=== PATIENT | male | born 1965 | race Hispanic/Latino ===

== ENCOUNTER 2018-01-15 16:02 | Inpatient (IN) | payer OTHER ==
[~2018-01-15] VITALS: Ht 167.6 cm; Wt 142.4 kg
[~2018-01-15 16:02] MED LIST: ESOM20CA60 PO; HYDR-3830 PO; LISI-613 PO; TAMS-1 PO
[2018-01-15] MEDS ORDERED: SODIUM CHLORIDE 0.9% 1000ML 2,000 ML IV ONE (17:05)
[2018-01-15 17:09] LABS: BASOPHILS % (AUTO) 0.2 % (0.0-5.0); EOSINOPHILS % (AUTO) 0.2 % (0.0-8.0); HEMATOCRIT 52.1 % (42-54); LYMPHOCYTES % (AUTO) 12.1 % (21.0-51.0); MEAN CORPUSCULAR HEMOGLOBIN 31.5 pg (27.0-33.0); MEAN CORPUSCULAR HGB CONC 34.2 g/dL (32.0-36.0); MONOCYTES % (AUTO) 6.3 % (3.0-13.0); NEUTROPHILS % (AUTO) 81.2 % (40.0-77.0); PLATELET COUNT (AUTO) 240 K/uL (130-400); RED BLOOD CELL COUNT(AUTO) 5.66 MIL/uL (4.50-6.20); RED CELL DISTRIBUTION WIDTH 15.4 % (11.0-15.5); WHITE BLOOD COUNT (AUTO) 11.5 K/uL (4.8-10.8)
[2018-01-15 17:19] LABS: INR 1.02 (0.85-1.15); PROTHROMBIN TIME 10.7 SEC (9.6-11.6)
[2018-01-15] MEDS ORDERED: KETOROLAC TROMETHAMINE 30MG/ML ONE (17:29)
[2018-01-15 17:37] LABS: CARBON DIOXIDE 25 mmol/L (21-32); CHLORIDE 100 mmol/L (101-111); CREATININE 0.9 mg/dL (0.5-1.5); GLOMERULAR FILTR. RATE CALC 95 mL/min (>60); GLUCOSE,RANDOM 107 mg/dL (70-105); POTASSIUM 3.5 mmol/L (3.5-5.1); SODIUM SERUM 137 mmol/L (136-145); UREA NITROGEN, BLOOD 14 mg/dL (7-18)
[2018-01-15 17:43] LABS: ALANINE AMINOTRANSFERASE 19 U/L (12-78); ALBUMIN 3.5 g/dL (3.5-5.0); ASPARTATE AMINOTRANSFERASE 21 U/L (10-37); BILIRUBIN,TOTAL 0.7 mg/dL (0.2-1.0); CREATINE KINASE MB 0.7 ng/mL (0.5-3.6); CREATINE KINASE, TOTAL 31 U/L (21-232); MYOGLOBIN 23 ng/mL (10-92); TROPONIN I < 0.04 ng/mL (0.00-0.06)
[2018-01-15] MEDS ORDERED: IOPAMIDOL-370 75 ML VIAL IV ONE (19:06)
[2018-01-15 20:10] LABS: APPEARANCE,URINE Clear (CLEAR); BILIRUBIN,URINE Negative (NEGATIVE); COLOR,URINE Yellow (YELLOW); GLUCOSE, URINE (UA) Negative (NEGATIVE); KETONES,URINE 15 mg/dL (NEGATIVE); LEUKOCYTE ESTERASE ,URINE Trace (NEGATIVE); NITRATE,URINE Negative (NEGATIVE); OCCULT BLOOD,URINE Negative (NEGATIVE); PROTEIN,URINE Negative (NEGATIVE)
[2018-01-15 20:22] LABS: BACTERIA,URINE None Seen /HPF (None Seen); RBC,URINE None Seen /HPF (0-1); SQUAMOUS EPITHELIAL CELL,UR 0-2 /HPF (0-2); WBC,URINE None Seen /HPF (0-1)
[2018-01-15] MEDS ORDERED: ONDANSETRON HCL MDV 20ML 2 MG/ML VIAL ONE (22:44)
[2018-01-15] MEDS ORDERED: MORPHINE SULFATE 4 MG/1ML SYG ONE (22:45)
[2018-01-16] VITALS (7 sets, daily range): BP systolic 108–179; BP diastolic 71–100
[2018-01-16] MEDS ORDERED: KETOROLAC TROMETHAMINE 30MG/ML ONE (00:42)
[2018-01-16] MEDS ORDERED: LACTATED RINGERS 1000ML 1,000 ML IV ONE (00:43)
[2018-01-16] MEDS ORDERED: DEXTROSE 50%-WATER 50 ML DISP.SYRIN IV PRN (01:00)
[2018-01-16] MEDS: LACTATED RINGERS 1000ML 1,000 ML IV SCH ×3 (01:00→14:59)
[2018-01-16] MEDS ORDERED: GLUCAGON 1MG KIT 1 MG ML IM PRN (01:00)
[2018-01-16] MEDS ORDERED: LORAZEPAM 2 MG/ML 1 ML VIAL IVP PRN ×2 (01:15→23:45)
[2018-01-16] MEDS ORDERED: MORPHINE SULFATE 2 MG/ML 1ML SYG IVP PRN (01:15)
[2018-01-16] MEDS ORDERED: HYDRALAZINE HCL 20 MG/ML VIAL IV PRN (01:15)
[2018-01-16 04:33] LABS: MEAN CORPUSCULAR HEMOGLOBIN 31.5 pg (27.0-33.0); MEAN CORPUSCULAR HGB CONC 34.7 g/dL (32.0-36.0); MEAN CORPUSCULAR VOLUME 90.8 fL (79-99); PLATELET COUNT (AUTO) 208 K/uL (130-400); RED BLOOD CELL COUNT(AUTO) 5.29 MIL/uL (4.50-6.20); RED CELL DISTRIBUTION WIDTH 15.4 % (11.0-15.5); WHITE BLOOD COUNT (AUTO) 9.3 K/uL (4.8-10.8)
[2018-01-16 04:37] LABS: CREATININE 0.8 mg/dL (0.5-1.5); POTASSIUM 3.6 mmol/L (3.5-5.1)
[2018-01-16 04:53] LABS: HEMOGLOBIN A1C 5.5 % (4.0-6.0)
[2018-01-16] MEDS: HEPARIN SODIUM 5000UNIT/ML 1ML VIAL SQ SCH ×3 (06:00→22:09)
[2018-01-16] MEDS: INSULIN R NPO SSI SQ SCH ×3 (06:00→17:34)
[2018-01-16] MEDS: KETOROLAC TROMETHAMINE 30MG/ML IV PRN ×3 (08:18→21:01)
[2018-01-16] MEDS: ONDANSETRON HCL MDV 20ML 2 MG/ML VIAL IVP PRN ×3 (08:19→21:07)
[2018-01-16] MEDS: PANTOPRAZOLE 40 MG/VIAL IVP SCH ×2 (08:34→20:51)
[2018-01-16] MEDS: METRONIDAZOLE 500MG/100ML BAG 100 ML IV SCH ×2 (14:58→22:05)
[2018-01-16] MEDS ORDERED: LORAZEPAM 2 MG/ML 1 ML VIAL ONE (23:41)
[2018-01-17] VITALS: BP 114/67
[2018-01-17 04:00] VITALS: BP 136/97
[2018-01-17] MEDS: LACTATED RINGERS 1000ML 1,000 ML IV SCH ×2 (04:58→15:35)
[2018-01-17] MEDS: METRONIDAZOLE 500MG/100ML BAG 100 ML IV SCH ×3 (05:03→21:27)
[2018-01-17] MEDS: HEPARIN SODIUM 5000UNIT/ML 1ML VIAL SQ SCH ×3 (05:03→21:31)
[2018-01-17] MEDS: INSULIN R NPO SSI SQ SCH ×4 (06:00→16:52)
[2018-01-17 06:21] LABS: BASOPHILS % (AUTO) 0.3 % (0.0-5.0); EOSINOPHILS % (AUTO) 0.7 % (0.0-8.0); HEMATOCRIT 44.7 % (42-54); LYMPHOCYTES % (AUTO) 22.3 % (21.0-51.0); MEAN CORPUSCULAR HEMOGLOBIN 31.2 pg (27.0-33.0); MEAN CORPUSCULAR VOLUME 91.8 fL (79-99); MONOCYTES % (AUTO) 9.2 % (3.0-13.0); NEUTROPHILS % (AUTO) 67.5 % (40.0-77.0); PLATELET COUNT (AUTO) 176 K/uL (130-400); RED BLOOD CELL COUNT(AUTO) 4.87 MIL/uL (4.50-6.20); WHITE BLOOD COUNT (AUTO) 6.2 K/uL (4.8-10.8)
[2018-01-17 06:39] LABS: CREATININE 0.8 mg/dL (0.5-1.5); POTASSIUM 3.7 mmol/L (3.5-5.1)
[2018-01-17] MEDS: ONDANSETRON HCL MDV 20ML 2 MG/ML VIAL IVP PRN ×3 (06:54→23:20)
[2018-01-17] MEDS: KETOROLAC TROMETHAMINE 30MG/ML IV PRN ×3 (06:59→23:19)
[2018-01-17 07:00] VITALS: BP 117/72
[2018-01-17] MEDS: PANTOPRAZOLE 40 MG/VIAL IVP SCH ×2 (09:04→20:03)
[2018-01-17 11:00] VITALS: BP 140/68
[2018-01-17 16:00] VITALS: BP 147/94
[2018-01-17] MEDS ORDERED: PEG 3350/NA SULF,BICARB,CL/KCL 4000 ML SOLN PO ONE (16:00)
[2018-01-17] MEDS ORDERED: MORPHINE SULFATE 4 MG/1ML SYG ONE (19:48)
[2018-01-17 19:50] VITALS: BP 163/108
[2018-01-18] VITALS: BP 139/84
[2018-01-18] MEDS ORDERED: MORPHINE SULFATE 4 MG/1ML SYG ONE ×3 (00:23→17:36)
[2018-01-18] MEDS: LACTATED RINGERS 1000ML 1,000 ML IV SCH ×5 (02:32→22:49)
[2018-01-18 03:45] VITALS: BP 147/94
[2018-01-18 05:56] LABS: BASOPHILS % (AUTO) 0.5 % (0.0-5.0); EOSINOPHILS % (AUTO) 0.6 % (0.0-8.0); HEMATOCRIT 44.9 % (42-54); MEAN CORPUSCULAR HEMOGLOBIN 31.3 pg (27.0-33.0); MEAN CORPUSCULAR HGB CONC 34.2 g/dL (32.0-36.0); MEAN CORPUSCULAR VOLUME 91.6 fL (79-99); MONOCYTES % (AUTO) 10.1 % (3.0-13.0); NEUTROPHILS % (AUTO) 71.8 % (40.0-77.0); PLATELET COUNT (AUTO) 195 K/uL (130-400); RED CELL DISTRIBUTION WIDTH 15.1 % (11.0-15.5); WHITE BLOOD COUNT (AUTO) 6.7 K/uL (4.8-10.8)
[2018-01-18 05:58] LABS: CREATININE 0.8 mg/dL (0.5-1.5); POTASSIUM 3.7 mmol/L (3.5-5.1)
[2018-01-18] MEDS: HEPARIN SODIUM 5000UNIT/ML 1ML VIAL SQ SCH ×3 (06:00→21:39)
[2018-01-18] MEDS: INSULIN R NPO SSI SQ SCH ×5 (06:00→23:49)
[2018-01-18] MEDS: KETOROLAC TROMETHAMINE 30MG/ML IV PRN ×3 (06:30→21:39)
[2018-01-18] MEDS: METRONIDAZOLE 500MG/100ML BAG 100 ML IV SCH ×3 (06:30→21:38)
[2018-01-18] MEDS: ONDANSETRON HCL MDV 20ML 2 MG/ML VIAL IVP PRN ×3 (06:30→21:38)
[2018-01-18 08:32] VITALS: BP 121/72
[2018-01-18] MEDS: TAMSULOSIN HCL 0.4 MG CAP.ER.24H PO SCH (09:00)
[2018-01-18] MEDS: PANTOPRAZOLE 40 MG/VIAL IVP SCH ×2 (10:05→21:38)
[2018-01-18 13:00] VITALS: BP 139/85
[2018-01-18] MEDS ORDERED: PEG 3350/NA SULF,BICARB,CL/KCL 4000 ML SOLN PO ONE (17:00)
[2018-01-18 19:00] VITALS: BP 153/87
[2018-01-18 23:00] VITALS: BP 150/95
[2018-01-18] MEDS: MORPHINE SULFATE 4 MG/1ML SYG IVP PRN (23:49)
[2018-01-19] VITALS (14 sets, daily range): BP systolic 128–169; BP diastolic 66–111
[2018-01-19] MEDS: MORPHINE SULFATE 4 MG/1ML SYG IVP PRN ×4 (03:41→20:22)
[2018-01-19 05:11] LABS: BASOPHILS % (AUTO) 0.3 % (0.0-5.0); EOSINOPHILS % (AUTO) 1.2 % (0.0-8.0); HEMATOCRIT 42.6 % (42-54); LYMPHOCYTES % (AUTO) 17.4 % (21.0-51.0); MEAN CORPUSCULAR HEMOGLOBIN 31.7 pg (27.0-33.0); MEAN CORPUSCULAR HGB CONC 34.9 g/dL (32.0-36.0); MONOCYTES % (AUTO) 11.3 % (3.0-13.0); NEUTROPHILS % (AUTO) 69.8 % (40.0-77.0); PLATELET COUNT (AUTO) 189 K/uL (130-400); RED BLOOD CELL COUNT(AUTO) 4.68 MIL/uL (4.50-6.20); WHITE BLOOD COUNT (AUTO) 6.3 K/uL (4.8-10.8)
[2018-01-19 05:25] LABS: CREATININE 0.8 mg/dL (0.5-1.5); POTASSIUM 3.6 mmol/L (3.5-5.1)
[2018-01-19] MEDS: INSULIN R NPO SSI SQ SCH ×4 (06:00→21:08)
[2018-01-19] MEDS: METRONIDAZOLE 500MG/100ML BAG 100 ML IV SCH ×3 (06:04→20:55)
[2018-01-19] MEDS: KETOROLAC TROMETHAMINE 30MG/ML IV PRN (06:11)
[2018-01-19] MEDS: TAMSULOSIN HCL 0.4 MG CAP.ER.24H PO SCH (09:00)
[2018-01-19] MEDS: ONDANSETRON HCL MDV 20ML 2 MG/ML VIAL IVP PRN ×2 (11:57→20:22)
[2018-01-19] MEDS: PANTOPRAZOLE 40 MG/VIAL IVP SCH ×2 (12:16→20:22)
[2018-01-19] MEDS: LACTATED RINGERS 1000ML 1,000 ML IV SCH ×2 (12:17→19:00)
[2018-01-19] MEDS ORDERED: PROPOFOL 10 MG/ML 20ML VIAL IV ONE (12:33)
[2018-01-19] MEDS ORDERED: GLYCOPYRROLATE 0.2 MG/ML 5 ML VIAL ONE (12:34)
[2018-01-19] MEDS ORDERED: LIDOCAINE HCL 2% 20ML ONE (12:34)
[2018-01-19] MEDS ORDERED: MEPERIDINE-PF 50 MG/ML SYG ONE ×2 (12:50)
[2018-01-19] MEDS ORDERED: MIDAZOLAM HCL 1 MG/ML 2ML VIAL ONE (12:50)
[2018-01-20] VITALS: BP 143/91
[2018-01-20] MEDS: MORPHINE SULFATE 4 MG/1ML SYG IVP PRN ×5 (00:44→23:29)
[2018-01-20] MEDS: LACTATED RINGERS 1000ML 1,000 ML IV SCH ×2 (01:55→14:02)
[2018-01-20 04:00] VITALS: BP 153/98
[2018-01-20 04:34] LABS: HEMATOCRIT 43.7 % (42-54); MEAN CORPUSCULAR HEMOGLOBIN 31.6 pg (27.0-33.0); MEAN CORPUSCULAR HGB CONC 34.7 g/dL (32.0-36.0); MEAN CORPUSCULAR VOLUME 91.1 fL (79-99); PLATELET COUNT (AUTO) 199 K/uL (130-400); RED BLOOD CELL COUNT(AUTO) 4.79 MIL/uL (4.50-6.20); WHITE BLOOD COUNT (AUTO) 6.9 K/uL (4.8-10.8)
[2018-01-20 04:54] LABS: ALBUMIN 2.7 g/dL (3.5-5.0); BILIRUBIN,TOTAL 0.6 mg/dL (0.2-1.0); CREATININE 0.7 mg/dL (0.5-1.5); MAGNESIUM 1.8 mg/dL (1.80-2.40); POTASSIUM 3.5 mmol/L (3.5-5.1); TOTAL PROTEIN, SERUM 6.3 g/dL (6.0-8.3)
[2018-01-20] MEDS: METRONIDAZOLE 500MG/100ML BAG 100 ML IV SCH ×3 (05:36→21:10)
[2018-01-20] MEDS: INSULIN R NPO SSI SQ SCH ×3 (05:36→18:00)
[2018-01-20 08:00] VITALS: BP 142/84
[2018-01-20] MEDS: PANTOPRAZOLE 40 MG/VIAL IVP SCH ×2 (09:00→21:10)
[2018-01-20] MEDS: TAMSULOSIN HCL 0.4 MG CAP.ER.24H PO SCH (09:00)
[2018-01-20] MEDS: ONDANSETRON HCL MDV 20ML 2 MG/ML VIAL IVP PRN ×3 (09:07→18:55)
[2018-01-20 11:46] VITALS: BP 162/97
[2018-01-20 16:00] VITALS: BP 161/68
[2018-01-20 19:00] VITALS: BP 146/88
[2018-01-20] MEDS: KETOROLAC TROMETHAMINE 30MG/ML IV PRN (21:10)
[2018-01-21] VITALS: BP 139/83
[2018-01-21] MEDS: ONDANSETRON HCL MDV 20ML 2 MG/ML VIAL IVP PRN ×4 (00:32→23:46)
[2018-01-21] MEDS: LACTATED RINGERS 1000ML 1,000 ML IV SCH ×3 (01:52→19:48)
[2018-01-21] MEDS: MORPHINE SULFATE 4 MG/1ML SYG IVP PRN ×6 (03:39→23:46)
[2018-01-21 03:54] VITALS: BP 139/86
[2018-01-21] MEDS: METRONIDAZOLE 500MG/100ML BAG 100 ML IV SCH ×3 (05:08→22:14)
[2018-01-21 05:10] LABS: HEMATOCRIT 42.6 % (42-54); MEAN CORPUSCULAR HEMOGLOBIN 31.4 pg (27.0-33.0); MEAN CORPUSCULAR HGB CONC 34.7 g/dL (32.0-36.0); MEAN CORPUSCULAR VOLUME 90.5 fL (79-99); PLATELET COUNT (AUTO) 217 K/uL (130-400); RED BLOOD CELL COUNT(AUTO) 4.71 MIL/uL (4.50-6.20); RED CELL DISTRIBUTION WIDTH 15.1 % (11.0-15.5); WHITE BLOOD COUNT (AUTO) 5.4 K/uL (4.8-10.8)
[2018-01-21 05:16] LABS: CREATININE 0.7 mg/dL (0.5-1.5); POTASSIUM 3.4 mmol/L (3.5-5.1)
[2018-01-21 05:19] LABS: INR 1.47 (0.85-1.15); PARTIAL THROMBOPLASTIN TIME 32.1 SEC (26.3-35.5); PROTHROMBIN TIME 14.9 SEC (9.6-11.6)
[2018-01-21] MEDS: INSULIN R NPO SSI SQ SCH ×5 (05:47→23:57)
[2018-01-21] MEDS: PANTOPRAZOLE 40 MG/VIAL IVP SCH (07:39)
[2018-01-21] MEDS: TAMSULOSIN HCL 0.4 MG CAP.ER.24H PO SCH (07:40)
[2018-01-21] MEDS: POTASSIUM CHLORIDE 10% ELIXIR 20 MEQ/15 ML UDCUP PO SCH (07:40)
[2018-01-21 08:00] VITALS: BP 146/93
[2018-01-21 11:39] VITALS: BP 131/92
[2018-01-21 16:00] VITALS: BP 144/87
[2018-01-21 20:00] VITALS: BP 137/76
[2018-01-22] VITALS (10 sets, daily range): BP systolic 76–156; BP diastolic 42–98
[2018-01-22] MEDS: MORPHINE SULFATE 4 MG/1ML SYG IVP PRN ×3 (04:09→12:47)
[2018-01-22 05:10] LABS: HEMATOCRIT 43.7 % (42-54); MEAN CORPUSCULAR HEMOGLOBIN 31.3 pg (27.0-33.0); MEAN CORPUSCULAR HGB CONC 34.4 g/dL (32.0-36.0); MEAN CORPUSCULAR VOLUME 90.9 fL (79-99); PLATELET COUNT (AUTO) 222 K/uL (130-400); RED CELL DISTRIBUTION WIDTH 14.6 % (11.0-15.5); WHITE BLOOD COUNT (AUTO) 7.3 K/uL (4.8-10.8)
[2018-01-22] MEDS: METRONIDAZOLE 500MG/100ML BAG 100 ML IV SCH ×3 (05:27→22:00)
[2018-01-22] MEDS: INSULIN R NPO SSI SQ SCH ×3 (05:31→18:00)
[2018-01-22 05:34] LABS: CREATININE 0.7 mg/dL (0.5-1.5); POTASSIUM 3.2 mmol/L (3.5-5.1)
[2018-01-22] MEDS: LACTATED RINGERS 1000ML 1,000 ML IV SCH ×2 (06:01→17:00)
[2018-01-22] MEDS: POTASSIUM CHLORIDE 10% ELIXIR 20 MEQ/15 ML UDCUP PO SCH (08:00)
[2018-01-22] MEDS: TAMSULOSIN HCL 0.4 MG CAP.ER.24H PO SCH (09:00)
[2018-01-22] MEDS: PANTOPRAZOLE 40 MG/VIAL IVP SCH (09:02)
[2018-01-22] MEDS: ONDANSETRON HCL MDV 20ML 2 MG/ML VIAL IVP PRN (09:17)
[2018-01-22] MEDS ORDERED: POTASSIUM CHLORIDE 10% ELIXIR 20 MEQ/15 ML UDCUP PO PRN (11:45)
[2018-01-22] MEDS ORDERED: POTASSIUM CHLORIDE 20 MEQ ERTAB PO PRN (11:45)
[2018-01-22] MEDS: POTASSIUM CHLORIDE 20MEQ/100ML 100 ML IV PRN (12:42)
[2018-01-22] MEDS ORDERED: SODIUM CHLORIDE 0.9% 1000ML 1,000 ML IV ONE ×2 (14:36→23:39)
[2018-01-22] MEDS ORDERED: LEVOFLOXACIN 500 MG/D5W 100 ML 100 ML ONE (15:44)
[2018-01-22] MEDS ORDERED: FENTANYL CITRATE PF 50 MCG/1 ML 5ML AMP IV ONE (15:50)
[2018-01-22] MEDS ORDERED: PROPOFOL 10 MG/ML 20ML VIAL IV ONE ×2 (15:50→20:30)
[2018-01-22] MEDS ORDERED: MIDAZOLAM HCL 1 MG/ML 2ML VIAL ONE (15:50)
[2018-01-22] MEDS ORDERED: NEOMY SULF/POLYMYXIN B SULFATE 1 ML AMPUL IR ONE ×2 (18:04→18:20)
[2018-01-22 18:09] LABS: ABG BASE EXCESS -4.8 mmol/L (-2.0-3.0); ABG HCO3 18.7 mmol/L (21.0-28.0); ABG OXYGEN SATURATION 96.9 % (95.0-99.0); ABG PCO2 32 mmHg (35-48)
[2018-01-22] MEDS ORDERED: ONDANSETRON HCL MDV 20ML 2 MG/ML VIAL ONE (19:43)
[2018-01-22] MEDS ORDERED: ROCURONIUM BROMIDE 10MG/1ML 5ML VL ONE (19:43)
[2018-01-22] MEDS ORDERED: DEXAMETHASONE SOD PHOSPHATE 10MG/ML 1ML VIAL ONE (19:43)
[2018-01-22] MEDS ORDERED: GLYCOPYRROLATE 0.2 MG/ML 5 ML VIAL ONE (19:43)
[2018-01-22] MEDS ORDERED: LIDOCAINE PF 2% 5ML ABBOJECT ONE (19:43)
[2018-01-22] MEDS ORDERED: LIDOCAINE HCL 4% LTA SOL 4 ML VIAL ONE (19:43)
[2018-01-22] MEDS ORDERED: PHENYLEPHRINE HCL 10 MG/ML 1ML VIAL IV ONE ×3 (19:43→23:43)
[2018-01-22] MEDS ORDERED: LIDOCAINE HCL MPF 1% 5ML VIAL ONE (19:43)
[2018-01-22] MEDS ORDERED: NEOSTIGMINE METHYLSULFATE 1MG/ML IV ONE (19:43)
[2018-01-22] MEDS ORDERED: LIDOCAINE HCL 2% JELLY 5 ML ONE (19:43)
[2018-01-22] MEDS ORDERED: DURAMORPH PF1 MG/ML 10ML AMP IV ONE (19:49)
[2018-01-22] MEDS ORDERED: PROPOFOL 1000 MG/100 ML 100 ML IV ONE ×2 (20:50→23:03)
[2018-01-22 21:09] LABS: ABG BASE EXCESS -11.6 mmol/L (-2.0-3.0); ABG HCO3 13.8 mmol/L (21.0-28.0); ABG OXYGEN SATURATION 99.2 % (95.0-99.0); ABG PCO2 31 mmHg (35-48)
[2018-01-22] MEDS ORDERED: SODIUM BICARB 8.4% 50ML SYRINGE ONE (21:11)
[2018-01-22] MEDS ORDERED: SODIUM CHLORIDE 0.9% 250 ML IV ONE ×2 (22:25→23:44)
[2018-01-22] MEDS ORDERED: FENTANYL 2500MCG+NS 250ML 250 ML IV ONE (22:54)
[2018-01-22] MEDS ORDERED: PHENYLEPHRINE HCL 10 MG in SODIUM CHLORIDE 0.9% 250 ML IV SCH (23:15)
[2018-01-22] MEDS ORDERED: FENTANYL 2500MCG+NS 250ML 250 ML IV PRN (23:15)
[2018-01-22] MEDS ORDERED: MEROPENEM 1GM IVPB PREMIXED 1 GM IV SCH (23:15)
[2018-01-22 23:18] LABS: ABG BASE EXCESS -6.7 mmol/L (-2.0-3.0); ABG HCO3 18.5 mmol/L (21.0-28.0); ABG OXYGEN SATURATION 96.8 % (95.0-99.0); ABG PCO2 37 mmHg (35-48)
[2018-01-23] VITALS (67 sets, daily range): BP systolic 77–129; BP diastolic 39–100
[2018-01-23] MEDS ORDERED: SODIUM CHLORIDE 0.9% 250 ML IV SCH
[2018-01-23] MEDS ORDERED: SODIUM CHLORIDE 0.9% 1000ML 1,000 ML IV SCH
[2018-01-23] MEDS ORDERED: SODIUM CHLORIDE 0.9% IV SCH ×2
[2018-01-23] MEDS ORDERED: PHENYLEPHRINE HCL IV SCH ×2
[2018-01-23] MEDS ORDERED: NOREPINEPHRINE BITARTRATE 1 MG/1 ML ML IV ONE ×3 (00:06→04:35)
[2018-01-23 00:11] LABS: BASOPHILS % (AUTO) 0.2 % (0.0-5.0); HEMATOCRIT 47.4 % (42-54); LYMPHOCYTES % (AUTO) 5.4 % (21.0-51.0); MEAN CORPUSCULAR HGB CONC 33.7 g/dL (32.0-36.0); MEAN CORPUSCULAR VOLUME 91.9 fL (79-99); MONOCYTES % (AUTO) 9.6 % (3.0-13.0); NEUTROPHILS % (AUTO) 84.8 % (40.0-77.0); PLATELET COUNT (AUTO) 265 K/uL (130-400); RED BLOOD CELL COUNT(AUTO) 5.15 MIL/uL (4.50-6.20); RED CELL DISTRIBUTION WIDTH 15.1 % (11.0-15.5); WHITE BLOOD COUNT (AUTO) 9.9 K/uL (4.8-10.8)
[2018-01-23 00:28] LABS: CREATININE 1.1 mg/dL (0.5-1.5); MAGNESIUM 1.2 mg/dL (1.80-2.40); POTASSIUM 3.7 mmol/L (3.5-5.1)
[2018-01-23] MEDS ORDERED: NOREPINEPHRINE 4MG/NS 250ML 250 ML IV SCH (00:30)
[2018-01-23] MEDS: SODIUM CHLORIDE 0.9% 250 ML IV SCH ×5 (00:34→06:11)
[2018-01-23] MEDS ORDERED: FLUCONAZOLE 200 MG/NS 100 ML 100 ML ONE (01:06)
[2018-01-23] MEDS ORDERED: MEROPENEM 1 GM VIAL ONE (01:06)
[2018-01-23] MEDS: POTASSIUM CHLORIDE 20MEQ/100ML 100 ML IV PRN (01:14)
[2018-01-23] MEDS ORDERED: PHENYLEPHRINE HCL 10 MG/ML 1ML VIAL IV ONE ×4 (01:44→06:06)
[2018-01-23] MEDS ORDERED: HYDROMORPHONE PCA 10 MG/50 ML 50 ML IV SCH (01:45)
[2018-01-23] MEDS ORDERED: MEPERIDINE HCL/PF 25 MG/0.5 ML AMPUL IM PRN (01:45)
[2018-01-23] MEDS: PROPOFOL 1000 MG/100 ML IV PRN ×2 (01:53→08:25)
[2018-01-23] MEDS ORDERED: FLUCONAZOLE 200 MG/NS 100 ML 100 ML IV ONE (02:00)
[2018-01-23] MEDS ORDERED: PHARMACY COMMUNICATION MISC SCH ×3 (02:15→12:15)
[2018-01-23] MEDS: LACTATED RINGERS 1000ML 1,000 ML IV SCH ×7 (02:34→18:30)
[2018-01-23] MEDS ORDERED: CLINDAMYCIN 600 MG/D5% WATER 100 ML IV ONE (03:04)
[2018-01-23 04:15] LABS: BASOPHILS % (AUTO) 0.1 % (0.0-5.0); HEMATOCRIT 52.4 % (42-54); LYMPHOCYTES % (AUTO) 3.8 % (21.0-51.0); MEAN CORPUSCULAR HGB CONC 33.3 g/dL (32.0-36.0); MONOCYTES % (AUTO) 9.1 % (3.0-13.0); PLATELET COUNT (AUTO) 326 K/uL (130-400); RED BLOOD CELL COUNT(AUTO) 5.64 MIL/uL (4.50-6.20); RED CELL DISTRIBUTION WIDTH 15.6 % (11.0-15.5); WHITE BLOOD COUNT (AUTO) 15.7 K/uL (4.8-10.8)
[2018-01-23 04:26] LABS: CREATININE 1.3 mg/dL (0.5-1.5); MAGNESIUM 1.4 mg/dL (1.80-2.40); POTASSIUM 4.6 mmol/L (3.5-5.1)
[2018-01-23] MEDS: METRONIDAZOLE 500MG/100ML BAG 100 ML IV SCH ×3 (05:22→22:23)
[2018-01-23] MEDS: INSULIN R NPO SSI SQ SCH ×4 (05:40→18:00)
[2018-01-23] MEDS ORDERED: CLINDAMYCIN 900 MG/D5% WATER 50 ML IV SCH (06:00)
[2018-01-23] MEDS ORDERED: MEROPENEM 1 GM VIAL IVP SCH (07:00)
[2018-01-23 07:37] LABS: ABG BASE EXCESS -7.8 mmol/L (-2.0-3.0); ABG HCO3 17.1 mmol/L (21.0-28.0); ABG OXYGEN SATURATION 92.9 % (95.0-99.0); ABG PCO2 33 mmHg (35-48)
[2018-01-23] MEDS ORDERED: SODIUM BICARB 50MEQ 50ML VIAL ONE (07:45)
[2018-01-23] MEDS: FLUCONAZOLE 200 MG/NS 100 ML 50 ML IV SCH (08:24)
[2018-01-23] MEDS: FAMOTIDINE/PF 20 MG/2 ML VIAL IV SCH ×2 (08:24→21:06)
[2018-01-23] MEDS: PHENYLEPHRINE HCL IV SCH ×3 (08:26→21:06)
[2018-01-23] MEDS: SODIUM CHLORIDE 0.9% IV SCH ×3 (08:26→21:06)
[2018-01-23] MEDS: TAMSULOSIN HCL 0.4 MG CAP.ER.24H PO SCH (08:28)
[2018-01-23] MEDS ORDERED: MAGNESIUM 4GM PREMIX 100ML 100 ML IV SCH (09:00)
[2018-01-23] MEDS ORDERED: CEFTAZIDIME 1GM+NS 50ML 50 ML IV SCH (12:15)
[2018-01-23] MEDS ORDERED: LACTATED RINGERS 1000ML IV SCH ×2 (12:30→13:15)
[2018-01-23] MEDS: DiphenhydrAMINE HCL 50 MG/ML VIAL IV SCH ×2 (12:38→21:06)
[2018-01-23] MEDS: CEFTAZIDIME PENTAHYDRATE 1 GM/VIAL IVP SCH ×2 (12:42→21:06)
[2018-01-23] MEDS ORDERED: LACTATED RINGERS 1000ML IV ONE (16:45)
[2018-01-23] MEDS: HYDROMORPHONE 1 MG/1 ML AMP IVP PRN (18:21)
[2018-01-23] MEDS: HYDROMORPHONE PCA 10 MG/50 ML 50 ML IV PRN (18:22)
[2018-01-23] MEDS: HEPARIN SODIUM 5000UNIT/ML 1ML VIAL SQ SCH (21:13)
[2018-01-24] VITALS (25 sets, daily range): BP systolic 91–122; BP diastolic 44–91
[2018-01-24] MEDS ORDERED: PHENYLEPHRINE HCL 10 MG/ML 1ML VIAL IV ONE ×2 (00:10→02:12)
[2018-01-24] MEDS: SODIUM CHLORIDE 0.9% 250 ML IV SCH ×2 (00:20→02:21)
[2018-01-24] MEDS: LACTATED RINGERS 1000ML 1,000 ML IV SCH ×3 (02:20→20:40)
[2018-01-24] MEDS: DiphenhydrAMINE HCL 50 MG/ML VIAL IV SCH ×3 (04:04→20:40)
[2018-01-24 04:39] LABS: BASOPHILS % (AUTO) 0.2 % (0.0-5.0); EOSINOPHILS % (AUTO) 0.4 % (0.0-8.0); HEMATOCRIT 35.4 % (42-54); LYMPHOCYTES % (AUTO) 8.5 % (21.0-51.0); MEAN CORPUSCULAR HGB CONC 33.8 g/dL (32.0-36.0); MEAN CORPUSCULAR VOLUME 91.7 fL (79-99); NEUTROPHILS % (AUTO) 84.9 % (40.0-77.0); PLATELET COUNT (AUTO) 230 K/uL (130-400); RED BLOOD CELL COUNT(AUTO) 3.86 MIL/uL (4.50-6.20); RED CELL DISTRIBUTION WIDTH 15.1 % (11.0-15.5); WHITE BLOOD COUNT (AUTO) 13.1 K/uL (4.8-10.8)
[2018-01-24] MEDS: CEFTAZIDIME PENTAHYDRATE 1 GM/VIAL IVP SCH ×3 (04:43→21:14)
[2018-01-24 04:48] LABS: CREATININE 0.8 mg/dL (0.5-1.5); POTASSIUM 3.6 mmol/L (3.5-5.1)
[2018-01-24] MEDS: POTASSIUM CHLORIDE 20MEQ/100ML 100 ML IV PRN (05:38)
[2018-01-24] MEDS: METRONIDAZOLE 500MG/100ML BAG 100 ML IV SCH ×3 (05:38→22:50)
[2018-01-24] MEDS: INSULIN R NPO SSI SQ SCH ×5 (06:00→22:48)
[2018-01-24] MEDS: PHENYLEPHRINE HCL IV SCH (06:47)
[2018-01-24] MEDS: SODIUM CHLORIDE 0.9% IV SCH (06:47)
[2018-01-24] MEDS: FLUCONAZOLE 200 MG/NS 100 ML 50 ML IV SCH (08:27)
[2018-01-24] MEDS: FAMOTIDINE/PF 20 MG/2 ML VIAL IV SCH ×2 (08:27→21:14)
[2018-01-24] MEDS: HEPARIN SODIUM 5000UNIT/ML 1ML VIAL SQ SCH ×3 (08:27→21:16)
[2018-01-24] MEDS: TAMSULOSIN HCL 0.4 MG CAP.ER.24H PO SCH (08:27)
[2018-01-24] MEDS ORDERED: LACTATED RINGERS 1000ML IV SCH (11:15)
[2018-01-24] MEDS: HYDROMORPHONE 1 MG/1 ML AMP IVP PRN (23:20)
[2018-01-25] VITALS (22 sets, daily range): BP systolic 103–136; BP diastolic 57–81
[2018-01-25] MEDS: LACTATED RINGERS 1000ML 1,000 ML IV SCH ×4 (01:14→21:14)
[2018-01-25] MEDS: DiphenhydrAMINE HCL 50 MG/ML VIAL IV SCH ×3 (03:35→20:55)
[2018-01-25] MEDS: CEFTAZIDIME PENTAHYDRATE 1 GM/VIAL IVP SCH ×3 (03:35→20:56)
[2018-01-25 05:06] LABS: MEAN CORPUSCULAR HEMOGLOBIN 32.8 pg (27.0-33.0); MEAN CORPUSCULAR HGB CONC 35.9 g/dL (32.0-36.0); MEAN CORPUSCULAR VOLUME 91.4 fL (79-99); NUCLEATED RED BLOOD CELLS 0.1 % (0.0-0.19); PLATELET COUNT (AUTO) 168 K/uL (130-400); RED BLOOD CELL COUNT(AUTO) 3.17 MIL/uL (4.50-6.20); RED CELL DISTRIBUTION WIDTH 15.1 % (11.0-15.5); WHITE BLOOD COUNT (AUTO) 7.3 K/uL (4.8-10.8)
[2018-01-25 05:12] LABS: CREATININE 0.6 mg/dL (0.5-1.5); POTASSIUM 3.3 mmol/L (3.5-5.1)
[2018-01-25 05:16] LABS: INR 1.2 (0.85-1.15); PARTIAL THROMBOPLASTIN TIME 35.7 SEC (26.3-35.5); PROTHROMBIN TIME 12.3 SEC (9.6-11.6)
[2018-01-25] MEDS: METRONIDAZOLE 500MG/100ML BAG 100 ML IV SCH ×3 (06:00→22:43)
[2018-01-25] MEDS: INSULIN R NPO SSI SQ SCH ×4 (06:00→20:53)
[2018-01-25] MEDS ORDERED: LIDOCAINE HCL-MPF 1% 5ML AMP IJ ONE (07:09)
[2018-01-25] MEDS ORDERED: FENTANYL CITRATE PF 50 MCG/1 ML 2ML VIAL ONE (07:09)
[2018-01-25] MEDS ORDERED: PROPOFOL 10 MG/ML 20ML VIAL IV ONE (07:09)
[2018-01-25] MEDS ORDERED: NEOMY SULF/BACITRAC ZN/POLY OINT 30GM TUBE TP ONE (07:27)
[2018-01-25] MEDS: TAMSULOSIN HCL 0.4 MG CAP.ER.24H PO SCH (09:09)
[2018-01-25] MEDS: FAMOTIDINE/PF 20 MG/2 ML VIAL IV SCH ×2 (09:10→20:56)
[2018-01-25] MEDS: FLUCONAZOLE 200 MG/NS 100 ML 50 ML IV SCH (09:10)
[2018-01-25] MEDS: HEPARIN SODIUM 5000UNIT/ML 1ML VIAL SQ SCH ×3 (09:14→21:08)
[2018-01-25] MEDS: ONDANSETRON HCL MDV 20ML 2 MG/ML VIAL IVP PRN (09:23)
[2018-01-25] MEDS: POTASSIUM CHLORIDE 20MEQ/100ML 100 ML IV PRN (10:40)
[2018-01-26 03:03] VITALS: BP 130/78
[2018-01-26] MEDS: ONDANSETRON HCL MDV 20ML 2 MG/ML VIAL IVP PRN ×3 (03:07→22:02)
[2018-01-26] MEDS: LACTATED RINGERS 1000ML 1,000 ML IV SCH ×3 (03:54→17:14)
[2018-01-26] MEDS: METRONIDAZOLE 500MG/100ML BAG 100 ML IV SCH ×3 (04:18→21:52)
[2018-01-26] MEDS: DiphenhydrAMINE HCL 50 MG/ML VIAL IV SCH ×3 (04:18→21:53)
[2018-01-26] MEDS: CEFTAZIDIME PENTAHYDRATE 1 GM/VIAL IVP SCH ×3 (04:18→21:53)
[2018-01-26 05:23] LABS: MEAN CORPUSCULAR HEMOGLOBIN 31.2 pg (27.0-33.0); MEAN CORPUSCULAR HGB CONC 34.4 g/dL (32.0-36.0); MEAN CORPUSCULAR VOLUME 90.8 fL (79-99); NUCLEATED RED BLOOD CELLS 0.1 % (0.0-0.19); PLATELET COUNT (AUTO) 228 K/uL (130-400); RED BLOOD CELL COUNT(AUTO) 3.63 MIL/uL (4.50-6.20); RED CELL DISTRIBUTION WIDTH 14.8 % (11.0-15.5); WHITE BLOOD COUNT (AUTO) 9.4 K/uL (4.8-10.8)
[2018-01-26 05:38] LABS: CREATININE 0.6 mg/dL (0.5-1.5); MAGNESIUM 1.9 mg/dL (1.80-2.40); POTASSIUM 3.7 mmol/L (3.5-5.1)
[2018-01-26 07:00] VITALS: BP 159/98
[2018-01-26] MEDS: HYDROMORPHONE PCA 10 MG/50 ML 50 ML IV PRN (07:13)
[2018-01-26] MEDS: INSULIN HUMULIN R 100 UNIT/ML 3ML SQ SCH ×4 (07:30→21:00)
[2018-01-26] MEDS: TAMSULOSIN HCL 0.4 MG CAP.ER.24H PO SCH (09:00)
[2018-01-26] MEDS: FLUCONAZOLE 200 MG/NS 100 ML 50 ML IV SCH (09:46)
[2018-01-26] MEDS: HEPARIN SODIUM 5000UNIT/ML 1ML VIAL SQ SCH ×3 (09:48→22:07)
[2018-01-26] MEDS: FAMOTIDINE/PF 20 MG/2 ML VIAL IV SCH ×2 (09:48→21:53)
[2018-01-26 11:00] VITALS: BP 141/82
[2018-01-26] MEDS ORDERED: METOCLOPRAMIDE 10 MG/2 ML VIAL IVP SCH (12:00)
[2018-01-26 15:00] VITALS: BP 116/56
[2018-01-26] MEDS ORDERED: MAGNESIUM 2GM PREMIX 50ML 50 ML IV SCH (17:30)
[2018-01-26 19:05] VITALS: BP 138/82
[2018-01-26] MEDS ORDERED: PROMETHAZINE HCL 25 MG/ML 1ML AMPULE IM PRN (20:15)
[2018-01-26 23:05] VITALS: BP 134/71
[2018-01-27] MEDS: LACTATED RINGERS 1000ML 1,000 ML IV SCH ×4 (02:25→19:54)
[2018-01-27 03:05] VITALS: BP 130/68
[2018-01-27] MEDS: DiphenhydrAMINE HCL 50 MG/ML VIAL IV SCH ×2 (04:17→12:48)
[2018-01-27] MEDS: CEFTAZIDIME PENTAHYDRATE 1 GM/VIAL IVP SCH ×3 (04:17→20:59)
[2018-01-27] MEDS: METRONIDAZOLE 500MG/100ML BAG 100 ML IV SCH ×3 (04:17→21:51)
[2018-01-27 04:30] LABS: ABG BASE EXCESS 2.4 mmol/L (-2.0-3.0); ABG HCO3 26.4 mmol/L (21.0-28.0); ABG PCO2 39 mmHg (35-48)
[2018-01-27 05:39] LABS: HEMATOCRIT 30.5 % (42-54); MEAN CORPUSCULAR HEMOGLOBIN 32.2 pg (27.0-33.0); MEAN CORPUSCULAR HGB CONC 36.2 g/dL (32.0-36.0); MEAN CORPUSCULAR VOLUME 89.1 fL (79-99); NUCLEATED RED BLOOD CELLS 0.1 % (0.0-0.19); PLATELET COUNT (AUTO) 243 K/uL (130-400); RED BLOOD CELL COUNT(AUTO) 3.42 MIL/uL (4.50-6.20); WHITE BLOOD COUNT (AUTO) 9.9 K/uL (4.8-10.8)
[2018-01-27 06:03] LABS: ALBUMIN 1.4 g/dL (3.5-5.0); BILIRUBIN,TOTAL 0.6 mg/dL (0.2-1.0); CREATININE 0.6 mg/dL (0.5-1.5); MAGNESIUM 1.9 mg/dL (1.80-2.40); POTASSIUM 3.5 mmol/L (3.5-5.1)
[2018-01-27] MEDS: INSULIN HUMULIN R 100 UNIT/ML 3ML SQ SCH ×4 (06:03→21:00)
[2018-01-27 07:00] VITALS: BP 118/69
[2018-01-27] MEDS: HYDROMORPHONE PCA 10 MG/50 ML 50 ML IV PRN (07:01)
[2018-01-27] MEDS: FAMOTIDINE/PF 20 MG/2 ML VIAL IV SCH ×2 (08:39→20:58)
[2018-01-27] MEDS: TAMSULOSIN HCL 0.4 MG CAP.ER.24H PO SCH (08:39)
[2018-01-27] MEDS: FLUCONAZOLE 200 MG/NS 100 ML 50 ML IV SCH (08:39)
[2018-01-27] MEDS: HEPARIN SODIUM 5000UNIT/ML 1ML VIAL SQ SCH ×3 (08:51→21:08)
[2018-01-27] MEDS: POTASSIUM CHLORIDE 20MEQ/100ML 100 ML IV PRN (10:48)
[2018-01-27 11:35] VITALS: BP 120/73
[2018-01-27] MEDS ORDERED: MAGNESIUM 2GM PREMIX 50ML 50 ML IV SCH (14:15)
[2018-01-27] MEDS: ONDANSETRON HCL MDV 20ML 2 MG/ML VIAL IVP PRN (15:54)
[2018-01-27 16:14] VITALS: BP 120/70
[2018-01-27 20:14] VITALS: BP 126/74
[2018-01-27] MEDS ORDERED: CLINIMIX IV SCH ×6 (21:00)
[2018-01-27 23:52] VITALS: BP 134/80
[2018-01-28] MEDS: HYDROMORPHONE PCA 10 MG/50 ML 50 ML IV PRN ×2 (01:11→20:28)
[2018-01-28] MEDS: LACTATED RINGERS 1000ML 1,000 ML IV SCH ×2 (02:17→04:10)
[2018-01-28] MEDS: CEFTAZIDIME PENTAHYDRATE 1 GM/VIAL IVP SCH ×3 (04:07→20:29)
[2018-01-28 04:40] VITALS: BP 109/67
[2018-01-28] MEDS: METRONIDAZOLE 500MG/100ML BAG 100 ML IV SCH ×3 (05:04→22:15)
[2018-01-28 05:55] LABS: HEMATOCRIT 29.9 % (42-54); MEAN CORPUSCULAR HEMOGLOBIN 30.8 pg (27.0-33.0); MEAN CORPUSCULAR HGB CONC 34.3 g/dL (32.0-36.0); MEAN CORPUSCULAR VOLUME 89.8 fL (79-99); NUCLEATED RED BLOOD CELLS 0.2 % (0.0-0.19); PLATELET COUNT (AUTO) 253 K/uL (130-400); RED BLOOD CELL COUNT(AUTO) 3.32 MIL/uL (4.50-6.20); WHITE BLOOD COUNT (AUTO) 8.9 K/uL (4.8-10.8)
[2018-01-28 06:04] LABS: ALBUMIN 1.4 g/dL (3.5-5.0); BILIRUBIN,TOTAL 0.4 mg/dL (0.2-1.0); CREATININE 0.6 mg/dL (0.5-1.5); MAGNESIUM 2.1 mg/dL (1.80-2.40); PHOSPHORUS 3.3 mg/dL (2.5-4.9); TOTAL PROTEIN, SERUM 4.9 g/dL (6.0-8.3)
[2018-01-28] MEDS: POTASSIUM CHLORIDE 20MEQ/100ML 100 ML IV PRN ×3 (06:11→20:30)
[2018-01-28] MEDS: LIDOCAINE HCL-MPF 1% 2ML VIAL IVP PRN (06:11)
[2018-01-28] MEDS: INSULIN HUMULIN R 100 UNIT/ML 3ML SQ SCH ×4 (06:20→21:00)
[2018-01-28 08:01] VITALS: BP 132/85
[2018-01-28] MEDS ORDERED: COMPOUND IV MISC 1 EACH IVSOLN MISC PRN (08:15)
[2018-01-28] MEDS: TAMSULOSIN HCL 0.4 MG CAP.ER.24H PO SCH (08:19)
[2018-01-28] MEDS: HEPARIN SODIUM 5000UNIT/ML 1ML VIAL SQ SCH ×3 (08:21→20:50)
[2018-01-28] MEDS: FLUCONAZOLE 200 MG/NS 100 ML 50 ML IV SCH (08:26)
[2018-01-28] MEDS: FAMOTIDINE/PF 20 MG/2 ML VIAL IV SCH ×2 (08:26→20:29)
[2018-01-28 11:25] VITALS: BP 124/85
[2018-01-28] MEDS: ONDANSETRON HCL MDV 20ML 2 MG/ML VIAL IVP PRN (12:03)
[2018-01-28 14:39] LABS: INR 1.55 (0.85-1.15); PARTIAL THROMBOPLASTIN TIME 34.2 SEC (26.3-35.5); PROTHROMBIN TIME 16.1 SEC (9.6-11.6)
[2018-01-28] MEDS ORDERED: POTASSIUM CHLORIDE 20 MEQ ERTAB PO PRN (15:30)
[2018-01-28] MEDS ORDERED: LIDOCAINE HCL-MPF 1% 2ML VIAL IVP PRN (15:30)
[2018-01-28] MEDS ORDERED: POTASSIUM CHLORIDE 20MEQ/100ML 100 ML IV PRN (15:30)
[2018-01-28] MEDS ORDERED: POTASSIUM CHLORIDE 10% ELIXIR 20 MEQ/15 ML UDCUP PO PRN (15:30)
[2018-01-28 16:17] VITALS: BP 120/81
[2018-01-28 19:50] VITALS: BP 152/86
[2018-01-28] MEDS: DiphenhydrAMINE HCL 50 MG/ML VIAL IV PRN (20:29)
[2018-01-28] MEDS ORDERED: CLINIMIX IV SCH ×6 (21:00)
[2018-01-29 00:14] VITALS: BP 107/73
[2018-01-29] MEDS: LACTATED RINGERS 1000ML 1,000 ML IV SCH ×2 (00:46→15:13)
[2018-01-29] MEDS: DiphenhydrAMINE HCL 50 MG/ML VIAL IV PRN ×3 (02:50→19:42)
[2018-01-29 04:00] VITALS: BP 122/68
[2018-01-29] MEDS: CEFTAZIDIME PENTAHYDRATE 1 GM/VIAL IVP SCH ×3 (04:54→19:33)
[2018-01-29] MEDS: METRONIDAZOLE 500MG/100ML BAG 100 ML IV SCH ×3 (04:54→22:00)
[2018-01-29 05:47] LABS: BASOPHILS % (AUTO) 0.5 % (0.0-5.0); EOSINOPHILS % (AUTO) 2.3 % (0.0-8.0); HEMATOCRIT 31.8 % (42-54); LYMPHOCYTES % (AUTO) 13.8 % (21.0-51.0); MEAN CORPUSCULAR HEMOGLOBIN 30.5 pg (27.0-33.0); MEAN CORPUSCULAR HGB CONC 33.8 g/dL (32.0-36.0); MEAN CORPUSCULAR VOLUME 90.4 fL (79-99); MONOCYTES % (AUTO) 6.4 % (3.0-13.0); NUCLEATED RED BLOOD CELLS 0.1 % (0.0-0.19); PLATELET COUNT (AUTO) 319 K/uL (130-400); RED BLOOD CELL COUNT(AUTO) 3.51 MIL/uL (4.50-6.20); RED CELL DISTRIBUTION WIDTH 15.2 % (11.0-15.5); WHITE BLOOD COUNT (AUTO) 8.1 K/uL (4.8-10.8)
[2018-01-29 05:59] LABS: ALBUMIN 1.5 g/dL (3.5-5.0); BILIRUBIN,TOTAL 0.3 mg/dL (0.2-1.0); CREATININE 0.6 mg/dL (0.5-1.5); PHOSPHORUS 3.2 mg/dL (2.5-4.9); POTASSIUM 3.6 mmol/L (3.5-5.1); TOTAL PROTEIN, SERUM 5.2 g/dL (6.0-8.3)
[2018-01-29] MEDS: ONDANSETRON HCL MDV 20ML 2 MG/ML VIAL IVP PRN ×2 (06:14→17:29)
[2018-01-29] MEDS: INSULIN HUMULIN R 100 UNIT/ML 3ML SQ SCH ×4 (07:30→21:00)
[2018-01-29 08:00] VITALS: BP 114/67
[2018-01-29] MEDS: TAMSULOSIN HCL 0.4 MG CAP.ER.24H PO SCH (09:00)
[2018-01-29] MEDS: FLUCONAZOLE 200 MG/NS 100 ML 50 ML IV SCH (09:07)
[2018-01-29] MEDS: FAMOTIDINE/PF 20 MG/2 ML VIAL IV SCH ×2 (09:08→19:33)
[2018-01-29] MEDS: POTASSIUM CHLORIDE 20MEQ/100ML 100 ML IV PRN (09:09)
[2018-01-29] MEDS: LIDOCAINE HCL-MPF 1% 2ML VIAL IVP PRN (09:09)
[2018-01-29] MEDS: HEPARIN SODIUM 5000UNIT/ML 1ML VIAL SQ SCH ×3 (09:10→21:56)
[2018-01-29 11:24] VITALS: BP 141/69
[2018-01-29] MEDS: HYDROMORPHONE PCA 10 MG/50 ML 50 ML IV PRN (11:51)
[2018-01-29 16:00] VITALS: BP 151/74
[2018-01-29 20:04] VITALS: BP 132/79
[2018-01-30] VITALS: BP 119/64
[2018-01-30] MEDS: CEFTAZIDIME PENTAHYDRATE 1 GM/VIAL IVP SCH ×3 (03:58→19:54)
[2018-01-30] MEDS: LACTATED RINGERS 1000ML 1,000 ML IV SCH ×2 (03:59→19:54)
[2018-01-30] MEDS: DiphenhydrAMINE HCL 50 MG/ML VIAL IV PRN ×3 (04:02→19:53)
[2018-01-30 04:23] VITALS: BP 135/74
[2018-01-30] MEDS: METRONIDAZOLE 500MG/100ML BAG 100 ML IV SCH (05:45)
[2018-01-30] MEDS: INSULIN HUMULIN R 100 UNIT/ML 3ML SQ SCH ×4 (06:56→21:00)
[2018-01-30 08:00] VITALS: BP 135/80
[2018-01-30] MEDS: FLUCONAZOLE 200 MG/NS 100 ML 50 ML IV SCH (09:00)
[2018-01-30] MEDS: TAMSULOSIN HCL 0.4 MG CAP.ER.24H PO SCH (09:00)
[2018-01-30] MEDS: FAMOTIDINE/PF 20 MG/2 ML VIAL IV SCH ×2 (09:00→19:54)
[2018-01-30] MEDS: HEPARIN SODIUM 5000UNIT/ML 1ML VIAL SQ SCH ×3 (09:02→20:11)
[2018-01-30] MEDS: ONDANSETRON HCL MDV 20ML 2 MG/ML VIAL IVP PRN ×2 (09:09→14:46)
[2018-01-30 11:49] VITALS: BP 131/75
[2018-01-30] MEDS ORDERED: MAGNESIUM CITRATE 296 ML SOLUTION PO ONE (13:15)
[2018-01-30] MEDS: MAGNESIUM HYDROXIDE 30 ML/UDCUP PO SCH (13:56)
[2018-01-30] MEDS: LACTULOSE 20 GM/30 ML UDCUP PO SCH (13:56)
[2018-01-30 16:00] VITALS: BP 126/74
[2018-01-30 20:40] VITALS: BP 118/68
[2018-01-31] VITALS: BP 118/72
[2018-01-31 04:04] VITALS: BP 112/67
[2018-01-31] MEDS: DiphenhydrAMINE HCL 50 MG/ML VIAL IV PRN ×3 (04:06→22:02)
[2018-01-31] MEDS: CEFTAZIDIME PENTAHYDRATE 1 GM/VIAL IVP SCH ×3 (04:06→22:02)
[2018-01-31] MEDS: ONDANSETRON HCL MDV 20ML 2 MG/ML VIAL IVP PRN ×2 (05:09→09:44)
[2018-01-31] MEDS: INSULIN HUMULIN R 100 UNIT/ML 3ML SQ SCH ×4 (06:25→21:00)
[2018-01-31 08:00] VITALS: BP 154/78
[2018-01-31] MEDS: TAMSULOSIN HCL 0.4 MG CAP.ER.24H PO SCH (09:39)
[2018-01-31] MEDS: FLUCONAZOLE 200 MG/NS 100 ML 50 ML IV SCH (09:39)
[2018-01-31] MEDS: FAMOTIDINE/PF 20 MG/2 ML VIAL IV SCH ×2 (09:39→22:02)
[2018-01-31] MEDS: HEPARIN SODIUM 5000UNIT/ML 1ML VIAL SQ SCH ×3 (09:42→21:51)
[2018-01-31] MEDS: LACTATED RINGERS 1000ML 1,000 ML IV SCH ×2 (09:49→23:01)
[2018-01-31] MEDS: HYDROMORPHONE PCA 10 MG/50 ML 50 ML IV PRN (11:31)
[2018-01-31 11:46] VITALS: BP 116/65
[2018-01-31] MEDS: LACTULOSE 20 GM/30 ML UDCUP PO SCH (13:15)
[2018-01-31] MEDS: MAGNESIUM HYDROXIDE 30 ML/UDCUP PO SCH (13:15)
[2018-01-31 16:00] VITALS: BP 125/42
[2018-01-31] MEDS: HYDROMORPHONE 1 MG/1 ML AMP IVP PRN ×2 (17:53→20:04)
[2018-01-31 20:15] VITALS: BP 122/59
[2018-02-01] VITALS (7 sets, daily range): BP systolic 105–126; BP diastolic 67–79
[2018-02-01] MEDS: HYDROMORPHONE 1 MG/1 ML AMP IVP PRN ×5 (00:46→16:12)
[2018-02-01] MEDS: DiphenhydrAMINE HCL 50 MG/ML VIAL IV PRN ×3 (05:32→20:01)
[2018-02-01] MEDS: CEFTAZIDIME PENTAHYDRATE 1 GM/VIAL IVP SCH ×3 (05:32→20:01)
[2018-02-01] MEDS: INSULIN HUMULIN R 100 UNIT/ML 3ML SQ SCH ×3 (05:58→21:00)
[2018-02-01 07:11] LABS: HEMATOCRIT 34.4 % (42-54); MEAN CORPUSCULAR HEMOGLOBIN 31.5 pg (27.0-33.0); MEAN CORPUSCULAR HGB CONC 35.1 g/dL (32.0-36.0); MEAN CORPUSCULAR VOLUME 89.7 fL (79-99); PLATELET COUNT (AUTO) 373 K/uL (130-400); RED BLOOD CELL COUNT(AUTO) 3.83 MIL/uL (4.50-6.20); RED CELL DISTRIBUTION WIDTH 14.9 % (11.0-15.5); WHITE BLOOD COUNT (AUTO) 8.4 K/uL (4.8-10.8)
[2018-02-01 07:18] LABS: CREATININE 0.8 mg/dL (0.5-1.5); POTASSIUM 4.2 mmol/L (3.5-5.1)
[2018-02-01 07:29] LABS: INR 1.09 (0.85-1.15); PARTIAL THROMBOPLASTIN TIME 28.9 SEC (26.3-35.5); PROTHROMBIN TIME 11.4 SEC (9.6-11.6)
[2018-02-01] MEDS: FAMOTIDINE/PF 20 MG/2 ML VIAL IV SCH ×2 (08:43→20:01)
[2018-02-01] MEDS: TAMSULOSIN HCL 0.4 MG CAP.ER.24H PO SCH (08:43)
[2018-02-01] MEDS: FLUCONAZOLE 200 MG/NS 100 ML 50 ML IV SCH (08:58)
[2018-02-01] MEDS: HEPARIN SODIUM 5000UNIT/ML 1ML VIAL SQ SCH (09:00)
[2018-02-01] MEDS: LACTULOSE 20 GM/30 ML UDCUP PO SCH (11:43)
[2018-02-01] MEDS: MAGNESIUM HYDROXIDE 30 ML/UDCUP PO SCH (11:43)
[2018-02-01] MEDS: LACTATED RINGERS 1000ML 1,000 ML IV SCH (14:03)
[2018-02-01] MEDS ORDERED: TRAMADOL HCL 50 MG TABLET PO PRN (18:15)
[2018-02-01] MEDS: TRAMADOL HCL 50 MG TABLET PO PRN (20:02)
[2018-02-01] MEDS: ACETAMINOPHEN 325 MG TAB PO PRN (22:50)
[2018-02-02] MEDS: TRAMADOL HCL 50 MG TABLET PO PRN ×3 (02:23→16:26)
[2018-02-02 04:00] VITALS: BP 123/69
[2018-02-02] MEDS: LACTATED RINGERS 1000ML 1,000 ML IV SCH (05:20)
[2018-02-02] MEDS: CEFTAZIDIME PENTAHYDRATE 1 GM/VIAL IVP SCH ×2 (05:20→12:08)
[2018-02-02] MEDS: ACETAMINOPHEN 325 MG TAB PO PRN ×2 (05:20→12:16)
[2018-02-02] MEDS: DiphenhydrAMINE HCL 50 MG/ML VIAL IV PRN ×2 (05:35→12:08)
[2018-02-02 07:00] VITALS: BP 122/74
[2018-02-02] MEDS: INSULIN HUMULIN R 100 UNIT/ML 3ML SQ SCH ×3 (07:30→16:30)
[2018-02-02] MEDS: FAMOTIDINE/PF 20 MG/2 ML VIAL IV SCH (09:00)
[2018-02-02] MEDS: TAMSULOSIN HCL 0.4 MG CAP.ER.24H PO SCH (09:00)
[2018-02-02] MEDS: FLUCONAZOLE 200 MG/NS 100 ML 50 ML IV SCH (10:01)
[2018-02-02 11:09] VITALS: BP 125/68
[2018-02-02] MEDS: MAGNESIUM HYDROXIDE 30 ML/UDCUP PO SCH (13:15)
[2018-02-02] MEDS: LACTULOSE 20 GM/30 ML UDCUP PO SCH (13:15)
[2018-02-02 15:30] VITALS: BP 135/80
== END 2018-02-02 17:28 | DRG 710 ==
LOC: EDH 16:02 → EDHIP 21:48 → 3DH 23:34 → 2CH 01-22 22:12 → 2BH 01-23 19:27 → 4BH 01-25 13:47
PROVIDERS: ADMIT Internal Medicine Nephrology; ATTEND Internal Medicine Nephrology
PROC: 0DDN8ZX Extraction of Sigmoid Colon, Via Natural or Artificial Opening Endoscopic, Diagnostic (ICD-10-PCS; 2018-01-19)
PROC: 0DT80ZZ Resection of Small Intestine, Open Approach (ICD-10-PCS; principal; 2018-01-22 16:00)
PROC: 0DTF0ZZ Resection of Right Large Intestine, Open Approach (ICD-10-PCS; 2018-01-22 16:00)
PROC: 0BH17EZ Insertion of Endotracheal Airway into Trachea, Via Natural or Artificial Opening (ICD-10-PCS; 2018-01-22 16:00)
PROC: 5A1935Z Respiratory Ventilation, Less than 24 Consecutive Hours (ICD-10-PCS; 2018-01-22 16:00)
PROC: 0JQ80ZZ Repair Abdomen Subcutaneous Tissue and Fascia, Open Approach (ICD-10-PCS; 2018-01-25)
PROC: 02HV33Z Insertion of Infusion Device into Superior Vena Cava, Percutaneous Approach (ICD-10-PCS; 2018-01-29)
DX: A41.9 Sepsis, unspecified organism (principal); R65.21 Severe sepsis with septic shock; J95.821 Acute postprocedural respiratory failure; I47.2 Ventricular tachycardia; K55.9 Vascular disorder of intestine, unspecified; E46 Unspecified protein-calorie malnutrition; I82.401 Acute embolism and thrombosis of unspecified deep veins of right lower extremity; E66.01 Morbid (severe) obesity due to excess calories; K57.20 Diverticulitis of large intestine with perforation and abscess without bleeding; K56.699 Other intestinal obstruction unspecified as to partial versus complete obstruction; E11.9 Type 2 diabetes mellitus without complications; E78.5 Hyperlipidemia, unspecified; F17.200 Nicotine dependence, unspecified, uncomplicated; N40.0 Benign prostatic hyperplasia without lower urinary tract symptoms; K40.90 Unilateral inguinal hernia, without obstruction or gangrene, not specified as recurrent; F41.9 Anxiety disorder, unspecified; I10 Essential (primary) hypertension; K21.9 Gastro-esophageal reflux disease without esophagitis; I25.10 Atherosclerotic heart disease of native coronary artery without angina pectoris; F41.1 Generalized anxiety disorder; G47.33 Obstructive sleep apnea (adult) (pediatric); J90 Pleural effusion, not elsewhere classified; K59.39 Other megacolon; F32.9 Major depressive disorder, single episode, unspecified; Z74.01 Bed confinement status; Z82.49 Family history of ischemic heart disease and other diseases of the circulatory system; Z83.3 Family history of diabetes mellitus; Z86.718 Personal history of other venous thrombosis and embolism; Z68.43 Body mass index [BMI] 50.0-59.9, adult; Z88.0 Allergy status to penicillin; Z93.3 Colostomy status; Z98.0 Intestinal bypass and anastomosis status; Z88.1 Allergy status to other antibiotic agents
CPT/HCPCS: 36415; 36600; 71045; 74018; 74177; 80048; 80053; 81001; 82330; 82378; 82435; 82550; 82553; 82803; 82947; 82948; 83036; 83605; 83735; 83874; 84100; 84132; 84153; 84295; 84484; 85018; 85025; 85027; 85610; 85730; 87040; 87088; 87186; 88307; 93005; 93306; 93970; 94002; 94003; 97039; A4218; A4344; C9113; J0610; J0713; J1100; J1170; J1200; J1450; J1644; J1885; J1956; J2001; J2060; J2175; J2185; J2250; J2270; J2274; J2370; J2704; J2710; J3010; J3475; J3480; J3490; J7030; J7040; J7070; J7120; J7131; Q9967

== ENCOUNTER 2018-03-02 11:37 | Emergency (ER) | payer OTHER ==
[~2018-03-02 11:37] MED LIST changes: -ESOM20CA60 PO
[2018-03-02] MEDS ORDERED: ACETAMINOPHEN EXTRA STRENGTH 500 MG TABLET ONE (14:02)
== END 2018-03-02 13:07 | disposition home or self-care (01) ==
LOC: EDH 11:37
DX: S00.03XA Contusion of scalp, initial encounter (principal); E78.5 Hyperlipidemia, unspecified; I10 Essential (primary) hypertension; Z86.718 Personal history of other venous thrombosis and embolism; Z88.1 Allergy status to other antibiotic agents; Z72.0 Tobacco use; Z98.890 Other specified postprocedural states; W18.39XA Other fall on same level, initial encounter; Y93.89 Activity, other specified; Y92.89 Other specified places as the place of occurrence of the external cause; Y99.8 Other external cause status
CPT/HCPCS: 70450

== ENCOUNTER 2021-03-25 09:43 | Emergency (ER) | payer OTHER ==
[~2021-03-25] VITALS: Ht 167.6 cm; Wt 110.2 kg
[~2021-03-25 09:43] MED LIST changes: -LISI-613 PO; +LISI20TA24 PO
[2021-03-25] MEDS ORDERED: SODIUM CHLORIDE 0.9% 1000ML 1,000 ML IV SCH (10:00)
[2021-03-25 10:21] LABS: INR 1.04 (0.85-1.15); PROTHROMBIN TIME 11.3 SEC (9.6-11.6)
[2021-03-25 10:29] LABS: ALCOHOL, BLOOD < 3 mg/dL (0-10)
[2021-03-25 10:47] LABS: CREATINE KINASE, TOTAL 106 U/L (21-232); MYOGLOBIN 301 ng/mL (10-92); SALICYLATE 3.6 mg/dL (2.8-20.0); TROPONIN I < 0.04 ng/mL (0.00-0.06)
[2021-03-25 10:49] LABS: ACETAMINOPHEN < 1 mcg/mL (10-29)
[2021-03-25 16:58] VITALS: BP 93/60
[2021-03-25 18:14] VITALS: BP 97/67
[2021-03-25] MEDS ORDERED: APIX5TAB PO (18:21)
[2021-03-25] MEDS ORDERED: LISI40TA9 PO (18:21)
[2021-03-25] MEDS ORDERED: HYDR25TA PO (18:21)
[2021-03-25] MEDS ORDERED: OMEP40CA21 PO (18:21)
[2021-03-25] MEDS ORDERED: SERT-439 PO (18:21)
== END 2021-03-25 20:47 | disposition home or self-care (01) ==
LOC: EDH 09:43
DX: S00.03XA Contusion of scalp, initial encounter (principal); R55 Syncope and collapse; R19.7 Diarrhea, unspecified; Z88.0 Allergy status to penicillin; Z79.899 Other long term (current) drug therapy; W18.39XA Other fall on same level, initial encounter; Y93.89 Activity, other specified; Y92.89 Other specified places as the place of occurrence of the external cause; Y99.8 Other external cause status
CPT/HCPCS: 36415; 70450; 71045; 72125; 73562; 73610; 82550; 83874; 84484; 85610; 85730; 93005; 96360; 99285; G0481; J7030